=== PATIENT | male | born 1990 | race Caucasian/White ===

== ENCOUNTER 2019-02-15 10:43 | Emergency (ER) | payer MEDICAID ==
[~2019-02-15] VITALS: Ht 170.2 cm; Wt 69.9 kg
[2019-02-15 10:55] VITALS: BP 147/88; Ht 170.2 cm; Wt 69.9 kg
== END 2019-02-15 11:29 | disposition home or self-care (01) ==
LOC: ED 10:43
DX: R10.812 Left upper quadrant abdominal tenderness (principal); R10.13 Epigastric pain; R03.0 Elevated blood-pressure reading, without diagnosis of hypertension; F12.20 Cannabis dependence, uncomplicated